=== PATIENT | male | born 1960 ===

== ENCOUNTER → 2017-08-18 | Outpatient (CLI) | payer MEDICAID ==
[~2017-08-18] MED LIST: ALBU0.63 NEB; ALBUAER3 INH; LISI10TA3 PO; SPIRCAP INH; XANA1TAB2 PO
[2017-08-18 12:28] LABS: AUTOMATED NEUTROPHIL # 3.2 TH/MM3 (1.8-7.7); BASOPHIL % 0.3 % (0.0-2.0); EOSINOPHIL # 0.1 TH/MM3 (0-0.4); EOSINOPHIL % 1.8 % (0.0-4.0); HEMATOCRIT 42.7 % (39.0-51.0); HEMOGLOBIN 14.3 GM/DL (13.0-17.0); LYMPH % 16.9 % (9.0-44.0); LYMPHOCYTE # 0.8 TH/MM3 (1.0-4.8); MEAN CELL VOLUME 99.3 FL (80.0-100.0); MEAN CORPUSCULAR HEMOGLOBIN 33.2 PG (27.0-34.0); MEAN CORPUSCULAR HGB CONC 33.5 % (32.0-36.0); MEAN PLATELET VOLUME 7.7 FL (7.0-11.0); MONOCYTE # 0.4 TH/MM3 (0-0.9); PLATELET COUNT 228 TH/MM3 (150-450); RED CELL DISTRIBUTION WIDTH 15.4 % (11.6-17.2); WHITE BLOOD COUNT 4.5 TH/MM3 (4.0-11.0)
--- NOTE | 2017-08-18 22:24 | EKG ---
Date Performed: 08/18/2017 Time Performed: 11:33:03 PTAGE: 57 years EKG: Sinus rhythm WITH OCCASIONAL SUPRAVENTRICULAR PREMATURE COMPLEXES BORDERLINE RIGHT AXIS DEVIATION INCOMPLETE RIGH T BUNDLE BRANCH BLOCK BORDERLINE ECG NO PREVIOUS TRACING DOCTOR: Miguel Miller Interpretating Date/Time 08/18/2017 22:23:48
== END ==
LOC: PHPRE 11:13
PROVIDERS: ATTEND Orthopaedic Surgery
DX: Z01.812 Encounter for preprocedural laboratory examination (principal); Z01.810 Encounter for preprocedural cardiovascular examination; M79.9 Soft tissue disorder, unspecified; I45.10 Unspecified right bundle-branch block
CPT/HCPCS: 85025; 93005

== ENCOUNTER → 2017-08-26 | Day surgery (SDC) | payer MEDICAID ==
[~2017-08-26] VITALS: Ht 193 cm; Wt 57.7 kg
[~2017-08-26] MED LIST changes: +BUPIVACAINE/EPINEPHRINE 0.25% PF 30 ML VIAL ONE; +LACTATED RINGER'S 1000 ML INJ 1,000 ML ONE; +MIDAZOLAM HCL 2 MG/2 ML VIAL ONE; +TRIAMCINOLONE ACETONIDE 40 MG/ML VIAL ONE; +methylPREDNISolone SOD SUCC 125 MG/2 ML VIAL ONE
[2017-08-26 11:40] VITALS: BP 98/61; PULSE 90; RESP 16; TEMP 96.4; O2SAT 95
--- NOTE | 2017-08-27 09:43 | MP ---
cc: ROGE OBANDO M.D. DATE OF SURGERY: 08/26/2017 PREOPERATIVE DIAGNOSIS: Soft tissue mass, right knee. POSTOPERATIVE DIAGNOSIS: Soft tissue mass, right knee. Probable sebaceous cyst. TYPE OF PROCEDURE: Excision of soft tissue tumor, right knee, greater then 5 cm. DETAILS OF PROCEDURE: The patient was placed on the operating table in supine position and adequate general anesthesia was administered by Dr. Russell the anesthesiologist. The right knee was prepped and draped in usual sterile fashion. A tourniquet was inflated to 300mmhg at the level of the proximal thigh. A time-out had already been called and the patient's name, location procedure etc. were fully verified. A longitudinal incision was made over the palpable and visible mass the wound was taken down to subcutaneous tissues and bleeding points electrocauterized. Deep fascia was incised since the cyst did appear to be beneath the fascial tissue. The cyst did appear to be a large in size and full of sebaceous type material and certainly it was not a solid lesion. It was also not fluid filled. Using sharp and blunt dissection the entire soft tissue mass was removed down to the underlying bursa, once again bleeding points electrocauterized and the skin edges approximated with eliseo. A subcutaneous type injection of 10 cc of 1% Marcaine was instilled. Sponge count, needle counts were counts were reported correct x2. Tourniquet was deflated. Examination of foot revealed adequate return of circulation. The patient tolerated the procedure well went to recovery room in satisfactory condition. Roge Obando MD NIURKA/danii /9:59 AM /9:21 AM
== END | disposition home or self-care (01) ==
LOC: PHSDC 07:01
PROVIDERS: ATTEND Orthopaedic Surgery
DX: L72.0 Epidermal cyst (principal)
CPT/HCPCS: 00400; 11406; 88305; J2250; J2930; J3010; J7120; 88304; J3301